=== PATIENT | female | born 1955 | race Caucasian/White ===

== ENCOUNTER 2023-01-05 12:42 | Inpatient (IN) | payer MEDICARE ==
[2023-01-05 13:01] LABS: HEMATOCRIT 42.7 % (36.0-46.0); HEMOGLOBIN 14.2 g/dL (12.0-16.0); MEAN CORPUSCULAR HGB CONC 33.3 g/dL (31.0-37.0); MEAN CORPUSCULAR VOLUME 78.1 fL (80.0-98.0); PLATELET COUNT,PLT 163 K/uL (150-400); RED BLOOD CELL COUNT 5.47 M/uL (4.30-5.90); WHITE BLOOD CELL COUNT,WBC 10.86 K/uL (4.0-11.0)
[2023-01-05 13:11] LABS: BASE EXCESS VENOUS 6.7 (-2.0-3.0); PH,VENOUS 7.46 (7.31-7.41)
[2023-01-05 13:33] LABS: A/G RATIO 0.9 (0.9-1.6); ALBUMIN 3.4 g/dL (3.4-5.0); BILIRUBIN TOTAL 0.3 mg/dL (0.2-1.0); CARBON DIOXIDE,CO2 28.6 mmol/L (21.0-32.0); CREATININE 1.1 mg/dL (0.6-1.0); EST CRCL DRUG DOSING (CG) 51.43 mL/min; MAGNESIUM 2.6 mg/dL (1.8-2.4); POTASSIUM,K 3.7 mmol/L (3.5-5.1); PROTEIN TOTAL,TP 7.2 g/dL (6.4-8.2)
[2023-01-05 13:47] LABS: CALCIUM 17.3 mg/dL (8.5-10.1)
[2023-01-05 13:48] LABS: LYMPHOCYTES ABSOLUTE MAN 0.7 (0.6-2.4); LYMPHOCYTES PERCENT MAN 6 % (16.0-40.0); METAMYELOCYTE ABSOLUTE MAN 0.1; METAMYELOCYTE PERCENT MAN 1 %; MONOCYTES ABSOLUTE MAN 0.2 (0.0-0.8); MONOCYTES PERCENT MAN 2 % (0.0-15.0); SEG NEUTROPHILS ABSOLUTE MAN 9.9 (1.4-5.7); SEG NEUTROPHILS PERCENT MAN 91 % (48.0-80.0)
[2023-01-05] MEDS ORDERED: diphenhydrAMINE 50 MG/ML SDV IVPUSH ONE (16:50)
[2023-01-05] MEDS ORDERED: methylPREDNISolone Sodium Succinate 125 MG/2 ML SDV IVPUSH ONE (16:50)
[2023-01-05 17:16] LABS: APPEARANCE,URINE SLT CLOUDY; BILIRUBIN,URINE NEGATIVE (NEGATIVE); COLOR,URINE YELLOW; GLUCOSE,URINE NEGATIVE (NEGATIVE); KETONES,URINE NEGATIVE (NEGATIVE); LEUKOCYTE ESTERASE,URINE NEGATIVE (NEGATIVE); NITRITE,URINE NEGATIVE (NEGATIVE); OCCULT BLOOD,URINE NEGATIVE (NEGATIVE); PROTEIN,URINE NEGATIVE (NEGATIVE); UROBILINOGEN,URINE 0.2 EU/dL (<2.0)
[2023-01-05] MEDS ORDERED: Iopamidol 755 Mg/ML 100 ML Bottle IVPUSH ONE (18:05)
[2023-01-05] MEDS ORDERED: Albuterol/Ipratropium 3.0-0.5 MG/3 ML Neb Soln NEB PRN (19:29)
[2023-01-05] MEDS ORDERED: Sodium Chloride 0.9% 10 ML Syringe FLUSH PRN (19:29)
[2023-01-05] MEDS ORDERED: Calcitonin (Salmon) 200 Units/ML 2 ML MDV SUBCUT ONE (19:29)
[2023-01-05] MEDS ORDERED: Polyethylene Glycol 3350 Powder 17 GM Packet PO PRN (19:29)
[2023-01-05] MEDS ORDERED: Sodium Chloride 0.9% 2.5 ML Syringe FLUSH PRN (19:29)
[2023-01-05] MEDS ORDERED: Ondansetron 4 MG/2 ML SDV IVPUSH PRN (19:29)
[2023-01-05] MEDS ORDERED: Sodium Chloride 0.9% 20 ML SDV IV PRN (19:29)
[2023-01-05] MEDS ORDERED: Zoledronic Acid 4 MG in Sodium Chloride 0.9% 100 ML IV ONE (19:34)
[2023-01-05 19:58] LABS: INR 1.06 (0.86-1.11); PTT,PARTIAL THROMBOPLSTIN TIME 27.6 SEC (23.9-30.7)
[2023-01-05] MEDS ORDERED: Heparin Sodium 5,000 Units/ML Vial IVPUSH ONE (20:36)
[2023-01-05] MEDS: Morphine 2 MG/ML SYRINGE IVPUSH PRN (20:39)
[2023-01-05] MEDS: Heparin Sodium/0.45% NaCl 500 ML IV SCH (21:05)
[2023-01-05] MEDS: Sodium Chloride 0.9% 1,000 ML IV SCH (22:17)
[2023-01-05] MEDS ORDERED: ZOLEDRONIC ACID IV ONE (22:30)
[2023-01-05] MEDS ORDERED: [UNRECOGNIZED DRUG - OTHER] IV ONE (22:30)
[2023-01-06] MEDS: Morphine 2 MG/ML SYRINGE IVPUSH PRN ×7 (03:28→19:13)
[2023-01-06] MEDS: Sodium Chloride 0.9% 1,000 ML IV SCH ×3 (06:06→21:46)
[2023-01-06 07:57] LABS: HEMATOCRIT 38.1 % (36.0-46.0); HEMOGLOBIN 12.6 g/dL (12.0-16.0); MEAN CORPUSCULAR HEMOGLOBIN 26.3 pg (27.0-32.0); MEAN CORPUSCULAR HGB CONC 33.1 g/dL (31.0-37.0); MEAN CORPUSCULAR VOLUME 79.5 fL (80.0-98.0); PLATELET COUNT,PLT 138 K/uL (150-400); RED BLOOD CELL COUNT 4.79 M/uL (4.30-5.90); WHITE BLOOD CELL COUNT,WBC 9.87 K/uL (4.0-11.0)
[2023-01-06 08:22] LABS: A/G RATIO 0.8 (0.9-1.6); ALBUMIN 2.8 g/dL (3.4-5.0); BILIRUBIN TOTAL 0.3 mg/dL (0.2-1.0); CALCIUM 13.3 mg/dL (8.5-10.1); EST CRCL DRUG DOSING (CG) 56.58 mL/min; MAGNESIUM 2.1 mg/dL (1.8-2.4); POTASSIUM,K 3.2 mmol/L (3.5-5.1); PROTEIN TOTAL,TP 6.5 g/dL (6.4-8.2)
[2023-01-06 08:37] LABS: LYMPHOCYTES PERCENT MAN 10 % (16.0-40.0); MONOCYTES ABSOLUTE MAN 0.7 (0.0-0.8); MONOCYTES PERCENT MAN 7 % (0.0-15.0); MYELOCYTE ABSOLUTE MAN 0.1; SEG NEUTROPHILS ABSOLUTE MAN 8.2 (1.4-5.7); SEG NEUTROPHILS PERCENT MAN 83 % (48.0-80.0)
[2023-01-06] MEDS ORDERED: Zoledronic Acid in Water 4 MG in Premix Bag 1 BAG IV ONE ×2 (11:41)
[2023-01-06] MEDS ORDERED: Calcitonin (Salmon) 200 Units/ML 2 ML MDV IM ONE (12:00)
[2023-01-06] MEDS: Potassium Chloride 100 ML IV SCH ×2 (12:33→15:26)
[2023-01-06] MEDS: Lidocaine 4% 1 each Patch TOP SCH (12:36)
[2023-01-06] MEDS: oxyCODONE 5 MG Tab PO SCH ×3 (12:36→23:17)
[2023-01-06] MEDS: Sertraline 100 MG Tab PO SCH (12:58)
[2023-01-06] MEDS: Polyethylene Glycol 3350 Powder 17 GM Packet PO SCH ×2 (12:58→20:49)
[2023-01-06] MEDS: Sertraline 50 MG Tab PO SCH (12:58)
[2023-01-06] MEDS ORDERED: Naloxone 0.4 MG/ML SDV IVPUSH PRN ×2 (20:01→20:22)
[2023-01-06] MEDS ORDERED: Morphine 2 MG/ML SYRINGE IVPUSH PRN (20:01)
[2023-01-06] MEDS ORDERED: Heparin Sodium 5,000 Units/ML Vial IVPUSH ONE (20:39)
[2023-01-06] MEDS: Morphine 4 MG/ML Syringe IVPUSH PRN (21:43)
[2023-01-06 22:46] LABS: A/G RATIO 0.8 (0.9-1.6); ALBUMIN 2.9 g/dL (3.4-5.0); BILIRUBIN TOTAL 0.4 mg/dL (0.2-1.0); CALCIUM 11.6 mg/dL (8.5-10.1); EST CRCL DRUG DOSING (CG) 56.58 mL/min; POTASSIUM,K 3.1 mmol/L (3.5-5.1); PROTEIN TOTAL,TP 6.4 g/dL (6.4-8.2)
[2023-01-06] MEDS ORDERED: Potassium Chloride 20 MEQ Tab.ER PO ONE (22:56)
[2023-01-06] MEDS: Potassium Chloride 20 MEQ in Premix Bag 1 BAG IV SCH (23:24)
[2023-01-07] MEDS: Morphine 4 MG/ML Syringe IVPUSH PRN ×4 (00:29→08:38)
[2023-01-07] MEDS: Potassium Chloride 20 MEQ in Premix Bag 1 BAG IV SCH (01:30)
[2023-01-07] MEDS: Heparin Sodium/0.45% NaCl 500 ML IV SCH ×2 (03:38→17:04)
[2023-01-07] MEDS: oxyCODONE 5 MG Tab PO SCH (04:53)
[2023-01-07] MEDS: Sodium Chloride 0.9% 1,000 ML IV SCH ×3 (05:40→19:16)
[2023-01-07] MEDS ORDERED: oxyCODONE 5 MG Tab PO PRN (08:39)
[2023-01-07] MEDS: Sertraline 50 MG Tab PO SCH (08:43)
[2023-01-07] MEDS: Dexamethasone 4 MG Tab PO SCH ×2 (08:44→20:17)
[2023-01-07] MEDS: Sertraline 100 MG Tab PO SCH (08:44)
[2023-01-07 09:18] LABS: A/G RATIO 0.8 (0.9-1.6); ALBUMIN 2.7 g/dL (3.4-5.0); BILIRUBIN TOTAL 0.4 mg/dL (0.2-1.0); CALCIUM 10.7 mg/dL (8.5-10.1); CARBON DIOXIDE,CO2 22.1 mmol/L (21.0-32.0); CREATININE 0.8 mg/dL (0.6-1.0); EST CRCL DRUG DOSING (CG) 70.72 mL/min; POTASSIUM,K 3.4 mmol/L (3.5-5.1); PROTEIN TOTAL,TP 6.2 g/dL (6.4-8.2)
[2023-01-07] MEDS: Morphine 15 MG Tab PO PRN ×3 (11:01→23:28)
[2023-01-07] MEDS: Polyethylene Glycol 3350 Powder 17 GM Packet PO SCH ×2 (11:20→20:17)
[2023-01-07] MEDS: Morphine 15 MG Tab.ER PO SCH ×2 (11:43→20:15)
[2023-01-07] MEDS: Potassium Chloride 100 ML IV SCH ×2 (11:44→14:13)
[2023-01-07] MEDS: Lidocaine 4% 1 each Patch TOP SCH (11:44)
[2023-01-07] MEDS: Acetaminophen 325 MG Tab PO PRN (14:53)
[2023-01-07] MEDS: Nystatin Susp 100,000 Unit/ML 5 ML UD Cup PO SCH ×2 (18:25→23:29)
[2023-01-08] MEDS: Acetaminophen 325 MG Tab PO PRN ×2 (01:59→14:37)
[2023-01-08] MEDS: Sodium Chloride 0.9% 1,000 ML IV SCH ×3 (03:01→18:03)
[2023-01-08 03:28] LABS: A/G RATIO 0.7 (0.9-1.6); ALBUMIN 2.4 g/dL (3.4-5.0); BILIRUBIN TOTAL 0.3 mg/dL (0.2-1.0); CALCIUM 9.5 mg/dL (8.5-10.1); CARBON DIOXIDE,CO2 20.6 mmol/L (21.0-32.0); CREATININE 0.7 mg/dL (0.6-1.0); EST CRCL DRUG DOSING (CG) 80.83 mL/min; POTASSIUM,K 3.9 mmol/L (3.5-5.1)
[2023-01-08] MEDS: Morphine 15 MG Tab PO PRN ×4 (05:30→23:44)
[2023-01-08] MEDS: Nystatin Susp 100,000 Unit/ML 5 ML UD Cup PO SCH ×4 (05:30→23:44)
[2023-01-08] MEDS ORDERED: Heparin Sodium/0.45% NaCl 500 ML IV SCH (07:15)
[2023-01-08] MEDS: Sertraline 50 MG Tab PO SCH (09:28)
[2023-01-08] MEDS: Sertraline 100 MG Tab PO SCH (09:28)
[2023-01-08] MEDS: Dexamethasone 4 MG Tab PO SCH ×2 (09:29→20:35)
[2023-01-08] MEDS: Morphine 15 MG Tab.ER PO SCH ×2 (09:29→20:35)
[2023-01-08] MEDS: Polyethylene Glycol 3350 Powder 17 GM Packet PO SCH ×2 (09:30→20:35)
[2023-01-08] MEDS: Apixaban 5 MG Tab PO SCH ×2 (10:25→20:35)
[2023-01-08] MEDS: Famotidine 20 MG Tab PO SCH (10:26)
[2023-01-08] MEDS: Lidocaine 4% 1 each Patch TOP SCH (12:22)
[2023-01-09] MEDS: Sodium Chloride 0.9% 1,000 ML IV SCH (01:53)
[2023-01-09] MEDS: Nystatin Susp 100,000 Unit/ML 5 ML UD Cup PO SCH ×3 (05:56→17:04)
[2023-01-09] MEDS: Morphine 15 MG Tab PO PRN ×3 (05:56→18:58)
[2023-01-09] MEDS: Polyethylene Glycol 3350 Powder 17 GM Packet PO SCH (08:12)
[2023-01-09] MEDS: Sertraline 100 MG Tab PO SCH (08:12)
[2023-01-09] MEDS: Sertraline 50 MG Tab PO SCH (08:12)
[2023-01-09] MEDS: Famotidine 20 MG Tab PO SCH (08:12)
[2023-01-09] MEDS: Morphine 15 MG Tab.ER PO SCH (08:13)
[2023-01-09] MEDS: Apixaban 5 MG Tab PO SCH (08:13)
[2023-01-09] MEDS: Dexamethasone 4 MG Tab PO SCH (08:13)
[2023-01-09] MEDS: Acetaminophen 325 MG Tab PO PRN ×2 (11:12→16:00)
[2023-01-09] MEDS: Lidocaine 4% 1 each Patch TOP SCH (12:28)
== END 2023-01-09 19:30 | disposition home or self-care (01) | DRG 176 ==
LOC: MW.ED 12:42 → MW.MS 19:23
PROVIDERS: ADMIT Family Medicine; ATTEND Family Medicine
DX: S22.089A Unspecified fracture of T11-T12 vertebra, initial encounter for closed fracture (principal); I26.92 Saddle embolus of pulmonary artery without acute cor pulmonale; C34.90 Malignant neoplasm of unspecified part of unspecified bronchus or lung; C79.9 Secondary malignant neoplasm of unspecified site; Z66 Do not resuscitate; R09.02 Hypoxemia; E83.52 Hypercalcemia; N19 Unspecified kidney failure; Z51.5 Encounter for palliative care; Z79.899 Other long term (current) drug therapy; Z87.820 Personal history of traumatic brain injury; R00.0 Tachycardia, unspecified; Z88.5 Allergy status to narcotic agent; Z88.0 Allergy status to penicillin; Z91.041 Radiographic dye allergy status; W01.198A Fall on same level from slipping, tripping and stumbling with subsequent striking against other object, initial encounter; Y92.002 Bathroom of unspecified non-institutional (private) residence as the place of occurrence of the external cause
CPT/HCPCS: 36415; 70450; 72125; 72128; 72131; 73030; 74177; 80053; 81003; 82803; 83735; 83970; 84443; 84484; 85025; 93005; 96374; 96375; 99285; J1200; J2930; Q9967; 85610; 85730; 93010; 97163-GP; 97530-GP; 99223; 99233; 99239; A9270-GY; J0630; J1644; J2270; J3480; J3489; J7030; J8540